=== PATIENT | male | born 1980 | race Caucasian/White ===

== ENCOUNTER 2022-06-23 13:16 | Emergency (ER) | payer MEDICAID ==
[~2022-06-23] VITALS: Ht 170.2 cm; Wt 72.7 kg
[2022-06-23 14:14] VITALS: BP 159/99
[2022-06-23] MEDS ORDERED: TRAZ-256 PO (16:09)
== END 2022-06-23 17:17 | disposition home or self-care (01) ==
LOC: ER 13:16
DX: F32.9 Major depressive disorder, single episode, unspecified (principal); F17.200 Nicotine dependence, unspecified, uncomplicated; F12.90 Cannabis use, unspecified, uncomplicated; Z72.89 Other problems related to lifestyle; Z79.899 Other long term (current) drug therapy
CPT/HCPCS: 99283